=== PATIENT | male | born 1950 | race Caucasian/White ===

== ENCOUNTER → 2017-11-04 | Outpatient (CLI) | payer OTHER ==
[~2017-11-04] MED LIST: AMLO5TAB2 PO; ASPIRIN PO; CARV12.511 PO; LEVO125T11 PO; LOSA50TA37 PO; ROSU20TA PO; SITA50TA PO; SPIR25TA6 PO
== END | disposition home or self-care (01) ==
LOC: OIH 13:25
PROVIDERS: ATTEND Internal Medicine Cardiovascular Disease
DX: Z13.6 Encounter for screening for cardiovascular disorders (principal)
CPT/HCPCS: 75571

== ENCOUNTER → 2022-07-29 | Outpatient (CLI) | payer OTHER ==
[~2022-07-29] MED LIST changes: +AMLO-257 PO; -AMLO5TAB2 PO; +IOHEXOL 350 MG/ML 100ML INFUS..BTL IV ONE; -LOSA50TA37 PO; +LOSA50TA64 PO; -ROSU20TA PO; +ROSU20TA23 PO
== END | disposition home or self-care (01) ==
LOC: RAH 10:03
PROVIDERS: ATTEND Internal Medicine Cardiovascular Disease
DX: I20.9 Angina pectoris, unspecified (principal)
CPT/HCPCS: 75574; Q9967